=== PATIENT | female | born 2000 | race Caucasian/White ===

== ENCOUNTER 2023-06-13 08:19 | Outpatient (CLI) | payer OTHER, SELFPAY ==
--- NOTE | 2023-07-10 10:16 | WPDSLEEPSTUD ---
Sleep Study Date of Study: 06/13/23 Ordering Provider: Amairani Antunez MD Interpreting Physician: Amairani Antunez MD Sleep Study Type: Polysomnogram Height: 1.73 m Weight: 63.503 kg Body Mass Index: 21.2 Neck Circumference (inches): 14 [place]: 4 Reason for Sleep Study Hypersomnolence Sleep History Erin Wu is a 23 year old female with insomnia since the age of 11. Her current comorbidities include ADHD, anxiety and depression. She has been prescribed trazodone on several occasions over the last 12 years. She has also been on quetiapine and gabapentin. Her sleep comes from not being able to fall asleep normally as well as her poor quality of sleep. Her normal sleep experience is very insistent and by that she means she does not drift to sleep she just falls asleep immediately. She has very intense dreams upon awakening and she awakes in cold sweats. She does not feel rested on awakening. This happens constantly. She occasionally has difficulty sleeping when she has a cold. She does not wake up gasping for breath at night she does not have breathing problems at night observed by others. She frequently sweats excessively at night. She occasionally notices her heart pounding or beating and irregularly during the night. She does not fall asleep during the day or fall asleep involuntarily. She does not fall asleep while driving. She does not have loss of muscle tone with strong emotion. She rarely has daytime difficulties due to excessive sleepiness. She does not feel paralyzed on waking or falling asleep. She does not have vivid dreamlike scenes upon awakening or falling asleep. She does not feel afraid to go to sleep. She does not ever have nightmares. She frequently remembers her dreams. She constantly has racing thoughts. She frequently feels sad or depressed. She constantly has anxiety. She occasionally has muscular tension. She does not notice parts of her body jerking. She does not kick at night. She occasionally has crawling and aching feelings in her legs. She does not have any kind of leg pain at night. She frequently has morning jaw pain. She occasionally grinds her teeth during sleep. She occasionally is bothered by pain during the day and occasionally awakened by pain at night. She frequently wakes up feeling stiff in the morning with sore achy muscles. She occasionally wakes up with pain in the neck and spine. She has insomnia, memory problems and concentration difficulties. Her normal bedtime is between 10:30 p.m. and 11:00 p.m. falling asleep within 30 minutes but sometimes taking up to an hour and half to fall asleep. She typically wakes twice during the night to go to the bathroom. She is able to return to sleep within 10-20 minutes. Her normal wake time is between 10:00 a.m. and 11:00 a.m.. She keeps a similar schedule on weekends, sometimes going to bed as late as midnight and waking as late as noon. She does not take naps in the afternoon or evening. She does not feel refreshed after a short 15 minute nap. She is drowsy for 3 hours after waking. She feels better in the evening compared to other times of day. She reports a 20 lb weight gain in the last year. Habits: Tobacco: Never. Caffeine: 1-2 cups coffee per day. Alcohol: none Recreational substances: yes, [facility] Past Medical History Medical History (Updated 07/10/23 @ 11:38 by Amairani Antunez MD) ADHD Anxiety and depression Recurrent urinary tract infection Seasonal allergies Social History Social History Smoking status: Never smoker Medications Home Medications Medication Instructions Recorded Confirmed Type clonazepam 0.5 mg tablet 0.5 mg PO DAILY 04/23/23 History dextroamphetamine-amphetamine ER 37.5 mg PO DAILY 04/23/23 History 37.5 mg capsule, 3 bead, ext rel 24hr (Mydayis) lamotrigine 25 mg tablet (Lamictal) 25 mg PO DAILY 04/23/23
[2023-07-10 11:32] VITALS: BMI 21.2
== END 2023-06-14 06:41 | disposition home or self-care (01) ==
LOC: ANHCSM 08:21
PROVIDERS: PCP Internal Medicine Critical Care Medicine; Visit Provider Internal Medicine Critical Care Medicine
DX: G47.19 Other hypersomnia (principal); G47.00 Insomnia, unspecified
CPT/HCPCS: 95810